=== PATIENT | female | born 1950 | race Caucasian/White ===

== ENCOUNTER 2018-08-03 11:55 | Outpatient (CLI) | payer MEDICARE, SELFPAY ==
[2018-08-03 12:28] LABS: Abs Immature Grans 0.01 k/cumm (0.0-0.09); Absolute Basophil Count 0.01 k/cumm (0.0-0.2); Absolute Lymphocyte Count 0.88 k/cumm (1.2-3.4); Absolute Monocyte Count 0.65 k/cumm (0.11-0.7); Absolute Neutrophil Count 2.23 k/cumm (1.2-6.7); Basophils % 0.3; HCT 28.9 % (36.0-46.0); HGB 9.3 g/dL (12.0-15.5); Immature Grans % 0.3; Lymphocytes % 23.3; Mean Corp. HGB Concentration 32.2 g/dL (32.0-36.0); Mean Corpuscular Hemoglobin 30.3 pg (27.0-33.0); Mean Corpuscular Volume 94.1 fL (80-95); Mean Platelet Volume 8.9 fL (8.0-11.0); Monocytes % 17.2; Neutrophils % 58.9; Platelet Count 236 x1000/uL (130-400); RBC 3.07 m/cumm (4.00-5.20); RBC Distribution Width 17.3 % (11.7-14.6); White Blood Cell Count 3.78 k/cumm (4.4-10.8)
[2018-08-03 12:43] LABS: Anisocytosis 2+; Diff Comment RBC Morph Reviewed
[2018-08-03 12:44] LABS: ALT 22 U/L (12-78); AST 25 U/L (15-37); Albumin 3.5 g/dL (3.4-5.0); Alkaline Phosphatase 85 U/L (46-116); Anion Gap 8.5 mmol/L (3-11); BUN 21 mg/dL (7-18); Bilirubin, Total 0.2 mg/dL (0.2-1.0); CO2 28.5 mmol/L (21.0-32.0); CREATININE 0.72 mg/dL (0.55-1.02); Calcium 8.9 mg/dL (8.5-10.1); Chloride 100 mmol/L (98-107); Glucose 104 mg/dL (70-100); Macrocytosis 1+; Microcytosis 1+; Poikilocytes 1+; Polychromasia Present; Potassium 4.3 mmol/L (3.5-5.1); Sodium 137 mmol/L (136-145); Total Protein 8.1 g/dL (6.4-8.2)
== END 2018-08-03 12:15 ==
PROVIDERS: PCP Family Medicine; Visit Provider Internal Medicine Hematology & Oncology
DX: D61.818 Other pancytopenia (principal)
CPT/HCPCS: 36415; 80053; 86850; 86900; 86901; 85025

== ENCOUNTER 2018-08-29 01:26 | Outpatient (RCR) | payer MEDICARE, SELFPAY ==
[2018-08-29] MEDS: Heparin 500 UNITS/5 ML SYRINGE IV (11:20)
[2018-08-29] MEDS: Normal Saline Flush 10 ML SYR IVP (11:20)
[2018-08-29 11:36] LABS: Absolute Basophil Count 0.01 k/cumm (0.0-0.2); Absolute Eosinophil Count 0.01 k/cumm (0.0-0.7); Absolute Lymphocyte Count 0.21 k/cumm (1.2-3.4); Absolute Monocyte Count 0.01 k/cumm (0.11-0.7); Absolute Neutrophil Count 1.36 k/cumm (1.2-6.7); Basophils % 0.6; Eosinophils % 0.6; HCT 26.6 % (36.0-46.0); HGB 8.8 g/dL (12.0-15.5); Lymphocytes % 13.1; Mean Corp. HGB Concentration 33.1 g/dL (32.0-36.0); Mean Corpuscular Hemoglobin 32.5 pg (27.0-33.0); Mean Corpuscular Volume 98.2 fL (80-95); Mean Platelet Volume 9.2 fL (8.0-11.0); Monocytes % 0.6; Neutrophils % 85.1; RBC 2.71 m/cumm (4.00-5.20); RBC Distribution Width 17.7 % (11.7-14.6)
[2018-08-29 11:47] LABS: ALT 36 U/L (12-78); AST 30 U/L (15-37); Albumin 3.4 g/dL (3.4-5.0); Alkaline Phosphatase 69 U/L (46-116); Anion Gap 8.4 mmol/L (3-11); BUN 26 mg/dL (7-18); Bilirubin, Total 0.5 mg/dL (0.2-1.0); CO2 28.6 mmol/L (21.0-32.0); CREATININE 0.83 mg/dL (0.55-1.02); Calcium 8.8 mg/dL (8.5-10.1); Chloride 99 mmol/L (98-107); Glucose 95 mg/dL (70-100); Potassium 4.5 mmol/L (3.5-5.1); Sodium 136 mmol/L (136-145); Total Protein 7.4 g/dL (6.4-8.2)
[2018-08-29 12:15] LABS: Diff Comment Diff Reviewed; Platelet Count 80 x1000/uL (130-400)
[2018-08-29 12:16] LABS: Basophilic Stippling Present; Hypochromasia 1+
[2018-08-29 12:17] LABS: Poikilocytes 2+
== END 2018-09-15 23:59 | disposition home or self-care (01) ==
LOC: INF 01:26
PROVIDERS: PCP Family Medicine; Visit Provider Internal Medicine Hematology & Oncology
DX: C92.01 Acute myeloblastic leukemia, in remission (principal); Z45.2 Encounter for adjustment and management of vascular access device
CPT/HCPCS: 36591; 80053; 86900; 86901; 85025